=== PATIENT | female | born 1990 | race African-American/Black ===

== ENCOUNTER 2020-02-23 10:17 | Emergency (ER) | payer OTHER ==
[~2020-02-23] VITALS: Ht 170.2 cm; Wt 104.3 kg
[2020-02-23 11:32] LABS: URINE BILIRUBIN NEGATIVE (Negative); URINE BLOOD 2+ (Negative); URINE CLARITY CLEAR; URINE COLOR YELLOW; URINE GLUCOSE-RANDOM* NEGATIVE (Negative); URINE KETONES NEGATIVE (Negative); URINE LEUKOCYTES-REFLEX NEGATIVE (Negative); URINE NITRITE-REFLEX NEGATIVE (Negative); URINE PROTEIN (DIPSTICK) NEGATIVE (Negative); URINE SPECIFIC GRAVITY 1.025 (1.005-1.035); URINE UROBILINOGEN 0.2 E.U./dl (0.2-1.0)
[2020-02-23 11:52] LABS: ABSOLUTE NEUTROPHILS 4.4 thou/uL (1.4-8.2); BASOPHILS 0.7 % (0.0-2.0); EOSINOPHILS 3.5 % (0.0-3.0); HEMOGLOBIN 12.6 gm/dL (12.0-15.0); LYMPHOCYTES 26.9 % (24.0-44.0); MCH 29.6 pg (26.0-34.0); MCHC 34.1 g/dL (28.0-37.0); MCV 86.8 fL (80.0-100.0); MONOCYTES 6.8 % (1.0-8.0); PLATELET COUNT 415 thou/uL (150-400); POLYS 62.1 % (36.0-66.0); RBC 4.26 mil/uL (4.20-5.00); RDW 12.7 % (10.5-14.5); WBC 7.1 thou/uL (4.0-11.0)
[2020-02-23 12:00] LABS: ANION GAP 8 mmol/L (7-16); BUN 13 mg/dL (7-18); CALCIUM 9.6 mg/dL (8.5-10.1); CHLORIDE 104 mmol/L (98-107); CO2 28 mmol/L (21-32); GLUCOSE 93 mg/dL (74-106); POTASSIUM 3.9 mmol/L (3.5-5.1); SODIUM 140 mmol/L (136-145)
[2020-02-23 12:10] LABS: ALBUMIN 3.8 g/dL (3.4-5.0); LIPASE 73 U/L (73-393); SGOT 14 U/L (15-37); SGPT 21 U/L (30-65); TOTAL BILIRUBIN 0.4 mg/dL (0.2-1.0); TOTAL PROTEIN 8.3 g/dL (6.4-8.2); TROPONIN-I <0.06 ng/mL (<0.06)
[2020-02-23 12:17] LABS: SQUAMOUS 0-3 Few /LPF (0-3)
[2020-02-23 12:18] LABS: BACTERIA-REFLEX None Seen /HPF (None Seen); CASTS None Seen /LPF (None Seen); CRYSTALS None Seen /LPF (None Seen); URINE RBC None Seen /HPF (0-2); URINE WBC-REFLEX 0-5 Rare /HPF (0-5)
[2020-02-23] MEDS ORDERED: NAPROSYN500 MG PO (13:13)
[2020-02-23] MEDS ORDERED: BUTALB-APAP-CA1 EACH PO (13:13)
[2020-02-23 13:37] VITALS: BP 120/59
--- NOTE | 2020-02-23 14:25 | EKG ---
[facility] [place] [address] ELECTROCARDIOGRAM REPORT Name: REE BUCHANAN Room #: DEP [facility].#: [id number] Admission: 02/23/20 Attend Phys: Discharge: 02/23/20 Date of : [birth year] Report #: [id number] THIS REPORT FOR: cc: AMRIT Rg family physician/PCP AMRIT Rg family physician/PCP Eladio Livingston MD [facility] ~ THIS REPORT FOR: //name// [facility] ED Test Date: 2020-02-23 Test Time: 10:29:37 Pat Name: REE BUCHANAN Department: Room: Gender: F Manager Part: : 1990 Requested By: Brodie Vitale Order Number: [id number] MD: Eladio Livingston Measurements Intervals [place] Rate: 91 P: 48 MS: 142 QRS: 33 QRSD: 85 T: 9 QT: 363 QTc: 447 Interpretive Statements Sinus rhythm Baseline wander in lead(s) II,III,aVF No previous ECG available for comparison Electronically Signed On 02-23-2020 14:24:49 [employer] by Eladio Livingston [email or web address] <ELECTRONICALLY SIGNED> By: Eladio Livingston MD, FACC 02/23/20 1424 1029 1029 Eladio Livingston MD, [facility] /EPI
== END 2020-02-23 13:38 | disposition home or self-care (01) ==
LOC: ER 10:17
PROVIDERS: Emergency Medicine
DX: M25.512 Pain in left shoulder (principal); N64.4 Mastodynia; K21.9 Gastro-esophageal reflux disease without esophagitis; R51.9 Headache, unspecified; R20.2 Paresthesia of skin; R05 Cough; H53.8 Other visual disturbances; H53.149 Visual discomfort, unspecified; Z88.5 Allergy status to narcotic agent; Z88.0 Allergy status to penicillin

== ENCOUNTER → 2020-04-03 | Outpatient (CLI) | payer OTHER ==
[~2020-04-03] MED LIST: BUTALB-APAP-CA1 EACH PO; NAPROSYN500 MG PO
== END ==
LOC: LAB 07:36
PROVIDERS: ATTEND Specialist
DX: Z20.822 Contact with and (suspected) exposure to COVID-19 (principal)

== ENCOUNTER → 2020-04-09 | Outpatient (CLI) | payer OTHER | LOC: LAB 13:16 | PROVIDERS: ATTEND Specialist | DX: Z20.822 Contact with and (suspected) exposure to COVID-19 (principal) ==

== ENCOUNTER 2020-07-06 23:14 | Emergency (ER) | payer OTHER ==
[~2020-07-06] VITALS: Ht 170.2 cm; Wt 109.3 kg
[2020-07-06 23:35] LABS: URINE BILIRUBIN NEGATIVE (Negative); URINE BLOOD TRACE (Negative); URINE CLARITY CLEAR; URINE COLOR YELLOW; URINE GLUCOSE-RANDOM* NEGATIVE (Negative); URINE KETONES NEGATIVE (Negative); URINE LEUKOCYTES-REFLEX NEGATIVE (Negative); URINE NITRITE-REFLEX NEGATIVE (Negative); URINE PROTEIN (DIPSTICK) NEGATIVE (Negative); URINE SPECIFIC GRAVITY 1.025 (1.005-1.035); URINE UROBILINOGEN 0.2 E.U./dl (0.2-1.0)
[2020-07-07] MEDS ORDERED: REGLAN 5 MG TAB5 MG PO (01:53)
[2020-07-07 02:08] VITALS: BP 125/66
--- NOTE | 2020-07-08 09:34 | EKG ---
[place] [address] [facility] [place] [address] ELECTROCARDIOGRAM REPORT Name: REE BUCHANAN [id number] Admission: 07/06/20 Attend Phys: Discharge: 07/07/20 Date of : [birth year] Report #: [id number] [facility] ED Test Date: 2020-07-07 Test Time: 00:49:57 Pat Name: REE BUCHANAN Department: Room: Gender: F Dispatcher [employer]: melinda : 1990 Requested By: Letty Chauhan Order Number: [id number] MD: Marito Andrea Measurements Intervals [place] Rate: 90 P: 46 KS: 148 QRS: 35 QRSD: 88 T: 22 QT: 379 QTc: 464 Interpretive Statements Sinus rhythm Nonspecific ST segment abnormality Compared to ECG 02/23/2020 10:29:37 No significant changes Electronically Signed On 07-08-2020 9:34:19 CDT by Marito Andrea [email or web address] <ELECTRONICALLY SIGNED> By: Marito Andrea MD, [facility] 07/08/20 0934 0049 0049 Marito Andrea MD, FACC /EPI
== END 2020-07-07 02:09 | disposition home or self-care (01) ==
LOC: ER 23:14
PROVIDERS: Emergency Medicine
DX: G43.909 Migraine, unspecified, not intractable, without status migrainosus (principal); K21.9 Gastro-esophageal reflux disease without esophagitis; Z88.5 Allergy status to narcotic agent; Z88.0 Allergy status to penicillin

== ENCOUNTER 2020-07-22 00:48 | Emergency (ER) | payer OTHER ==
[~2020-07-22] VITALS: Ht 170.2 cm; Wt 109.3 kg
[~2020-07-22 00:48] MED LIST changes: +REGLAN 5 MG TAB5 MG PO
[2020-07-22] MEDS ORDERED: ASPIRIN PO (01:36)
[2020-07-22] MEDS ORDERED: LIDODERM1 EACH TRANSDERM (02:03)
[2020-07-22 02:14] VITALS: BP 126/74
--- NOTE | 2020-07-22 07:07 | EKG ---
[place] [address] [facility] [facility] [place] [address] ELECTROCARDIOGRAM REPORT Name: REE BUCHANAN [id number] Admission: 07/22/20 Attend Phys: Discharge: 07/22/20 Date of : [birth year] Report #: [id number] [facility] ED Test Date: 2020-07-22 Test Time: 01:48:15 Pat Name: REE BUCHANAN Department: Room: Gender: F [employer] Developer: SAUMYA : 1990 Requested By: Charmaine Kaiser Order Number: [id number] MD: Eladio Livingston Measurements Intervals [place] Rate: 88 P: 47 WI: 151 QRS: 19 QRSD: 94 T: 13 QT: 375 QTc: 457 Interpretive Statements Sinus rhythm Compared to ECG 07/07/2020 00:49:57 ST (T wave) deviation no longer present Electronically Signed On 07-22-2020 7:07:24 CDT by Eladio Livingston [email or web address] <ELECTRONICALLY SIGNED> By: Eladio Livingston MD, [facility] 07/22/20706 0148 0148 Eladio Livingston MD, FACC /EPI
== END 2020-07-22 02:14 | disposition home or self-care (01) ==
LOC: ER 00:48
DX: R07.89 Other chest pain (principal); K21.9 Gastro-esophageal reflux disease without esophagitis; G43.909 Migraine, unspecified, not intractable, without status migrainosus; Z79.82 Long term (current) use of aspirin; Z79.899 Other long term (current) drug therapy; Z88.0 Allergy status to penicillin; Z88.5 Allergy status to narcotic agent

== ENCOUNTER 2020-11-11 16:07 | Emergency (ER) | payer OTHER ==
[~2020-11-11] VITALS: Ht 170.2 cm; Wt 113.4 kg
[~2020-11-11 16:07] MED LIST changes: +ASPIRIN PO; +LIDODERM1 EACH TRANSDERM
[2020-11-11] MEDS ORDERED: NAPROSYN500 MG PO (16:17)
[2020-11-11 17:56] VITALS: BP 131/88
== END 2020-11-11 17:57 | disposition home or self-care (01) ==
LOC: ER 16:07
DX: M25.511 Pain in right shoulder (principal); K21.9 Gastro-esophageal reflux disease without esophagitis; Z79.899 Other long term (current) drug therapy; Z88.0 Allergy status to penicillin; Z88.1 Allergy status to other antibiotic agents

== ENCOUNTER 2020-11-15 08:22 | Emergency (ER) | payer OTHER ==
[~2020-11-15] VITALS: Ht 170.2 cm; Wt 113.4 kg
[2020-11-15] MEDS ORDERED: MOBIC15 MG PO (09:37)
[2020-11-15 09:40] VITALS: BP 153/90
== END 2020-11-15 09:40 ==
LOC: ER 08:22
DX: S46.911D Strain of unspecified muscle, fascia and tendon at shoulder and upper arm level, right arm, subsequent encounter (principal); K21.9 Gastro-esophageal reflux disease without esophagitis; G43.909 Migraine, unspecified, not intractable, without status migrainosus; Z79.899 Other long term (current) drug therapy; Z88.0 Allergy status to penicillin; Z88.5 Allergy status to narcotic agent; X58.XXXD Exposure to other specified factors, subsequent encounter

== ENCOUNTER 2021-01-24 19:29 | Emergency (ER) | payer OTHER ==
[~2021-01-24] VITALS: Ht 170.2 cm; Wt 111.1 kg
[~2021-01-24 19:29] MED LIST changes: +MOBIC15 MG PO
[2021-01-24] MEDS ORDERED: NOHOMEMEDICATIONS (19:50)
[2021-01-24] MEDS ORDERED: METHOCARBAMOL500 M2 PO (20:41)
[2021-01-24] MEDS ORDERED: MEDROLDOSEPACK PO (20:41)
[2021-01-24 20:45] VITALS: BP 132/68
[2021-01-24] MEDS ORDERED: RETIN-A45 GM TOP (20:46)
== END 2021-01-24 21:33 | disposition home or self-care (01) ==
LOC: ER 19:29
DX: L83 Acanthosis nigricans (principal); M54.42 Lumbago with sciatica, left side; K21.9 Gastro-esophageal reflux disease without esophagitis; G43.909 Migraine, unspecified, not intractable, without status migrainosus; Z88.6 Allergy status to analgesic agent; Z88.0 Allergy status to penicillin

== ENCOUNTER 2021-02-08 12:04 | Emergency (ER) | payer OTHER ==
[~2021-02-08] VITALS: Ht 170.2 cm; Wt 111.1 kg
[~2021-02-08 12:04] MED LIST changes: +MEDROLDOSEPACK PO; +METHOCARBAMOL500 M2 PO; +NOHOMEMEDICATIONS; +RETIN-A45 GM TOP
[2021-02-08 12:09] VITALS: BP 164/99
[2021-02-08] MEDS ORDERED: FLEXERIL PO (12:24)
[2021-02-08] MEDS ORDERED: PREDNISONE 20 M20 MG PO (12:24)
== END 2021-02-08 12:35 | disposition home or self-care (01) ==
LOC: ER 12:04
DX: L25.9 Unspecified contact dermatitis, unspecified cause (principal); M54.42 Lumbago with sciatica, left side; M54.41 Lumbago with sciatica, right side; K21.9 Gastro-esophageal reflux disease without esophagitis; G43.909 Migraine, unspecified, not intractable, without status migrainosus; Z79.899 Other long term (current) drug therapy; Z79.891 Long term (current) use of opiate analgesic; Z88.5 Allergy status to narcotic agent; Z88.0 Allergy status to penicillin

== ENCOUNTER 2021-03-12 07:57 | Emergency (ER) | payer OTHER ==
[~2021-03-12] VITALS: Ht 170.2 cm; Wt 109.8 kg
[~2021-03-12 07:57] MED LIST changes: +FLEXERIL PO; +PREDNISONE 20 M20 MG PO
[2021-03-12 09:12] LABS: URINE BILIRUBIN NEGATIVE (Negative); URINE BLOOD TRACE (Negative); URINE CLARITY CLEAR; URINE COLOR YELLOW; URINE GLUCOSE-RANDOM* NEGATIVE (Negative); URINE KETONES NEGATIVE (Negative); URINE LEUKOCYTES-REFLEX NEGATIVE (Negative); URINE NITRITE-REFLEX NEGATIVE (Negative); URINE PROTEIN (DIPSTICK) NEGATIVE (Negative); URINE UROBILINOGEN 0.2 E.U./dl (0.2-1.0)
[2021-03-12] MEDS ORDERED: DOXYCYCLINE 10100 MG PO (10:04)
[2021-03-12 10:11] VITALS: BP 154/93
== END 2021-03-12 10:13 | disposition home or self-care (01) ==
LOC: ER 07:57
PROVIDERS: Student in an Organized Health Care Education/Training Program
DX: J18.9 Pneumonia, unspecified organism (principal); Z20.822 Contact with and (suspected) exposure to COVID-19; J06.9 Acute upper respiratory infection, unspecified; R05.9 Cough, unspecified; K21.9 Gastro-esophageal reflux disease without esophagitis; G43.909 Migraine, unspecified, not intractable, without status migrainosus; Z88.5 Allergy status to narcotic agent; Z88.0 Allergy status to penicillin